=== PATIENT | female | born 2000 | race African-American/Black ===

== ENCOUNTER 2018-04-23 13:53 | Inpatient (IN) | payer OTHER ==
[~2018-04-23] VITALS: Ht 165.1 cm; Wt 81.2 kg
[2018-04-23] MEDS ORDERED: PNV1TABL50 PO (14:09)
[2018-04-23 15:01] LABS: CLARITY URINE CLEAR (CLEAR); COLOR URINE YELLOW (YELLOW); KETONES URINE NEGATIVE (NEGATIVE); LEUKOCYTE ESTERASE URINE TRACE (NEGATIVE); NITRITE URINE NEGATIVE (NEGATIVE); OCCULT BLOOD URINE NEGATIVE (NEGATIVE); PROTEIN URINE TRACE (NEGATIVE); SPECIFIC GRAVITY URINE 1.018 (1.005-1.030)
[2018-04-23 15:16] LABS: *BARBITURATES SCREEN URINE NEGATIVE (NEGATIVE)
[2018-04-23 15:17] LABS: *BENZODIAZEPINES SCREEN URINE NEGATIVE (NEGATIVE); *COCAINE SCREEN URINE NEGATIVE (NEGATIVE); CANNABINOID URINE SCREEN NEGATIVE (NEGATIVE); METHADONE URINE SCREEN NEGATIVE (NEGATIVE); OPIATES URINE SCREEN NEGATIVE (NEGATIVE); PHENCYCLIDINE URINE SCREEN NEGATIVE (NEGATIVE)
[2018-04-23 15:24] LABS: *AMPHETAMINES SCREEN URINE PRESUMTIVE POSITIVE (NEGATIVE)
[2018-04-23] MEDS ORDERED: DEXT 5%/LR + PITOCIN 20UNITS/L 1,000 ML IV SCH (15:54)
[2018-04-23] MEDS ORDERED: LACTATED RINGERS 1,000 ML IV SCH (15:54)
[2018-04-23] MEDS ORDERED: PENICILLIN G POTASSIUM 5 MMU in DEXT 5% WATER 100 ML IV SCH (16:00)
[2018-04-23] MEDS ORDERED: BUTORPHANOL TARTRATE 2 MG/ML VIAL IV PRN (16:00)
[2018-04-23] MEDS ORDERED: MAGNESIUM 20 G PREMIX (L & D) 500 ML IV SCH (16:00)
[2018-04-23] MEDS ORDERED: LIDOCAINE HCL 1% 20ML VIAL (Pyxis) INJ INFIL SCH (16:00)
[2018-04-23 16:50] LABS: BASOPHILS % 0.7 % (0.0-2.0); EOSINOPHILS % 0.2 % (0.0-5.0); HEMOGLOBIN. 11.2 g/dL (12.0-16.0); LYMPHOCYTES % 15.4 % (20.0-50.0); MEAN CORPUSCULAR HEMOGLOBIN 24.7 pg (28.0-32.0); MEAN CORPUSCULAR VOLUME 76.9 fL (81.0-99.0); MEAN PLATELET VOLUME 9.1 fl (7.4-10.4); NEUTROPHILS % 77.7 % (40.0-76.0); PLATELET 232 x1000/uL (130-400); RED BLOOD CELL COUNT 4.55 mill/uL (4.2-5.4); RED CELL DISTRIBUTION WIDTH 14.2 % (11.6-14.6)
[2018-04-23 17:06] LABS: CHLORIDE 107 mEq/L (98-107)
[2018-04-23 17:23] LABS: INR 0.9; PARTIAL THROMBOPLASTIN TIME 27.3 sec (23.4-31.0); PROTHROMBIN TIME 9.1 sec (9.1-11.1)
[2018-04-23 17:36] LABS: HEPATITIS B SURFACE ANTIGEN NEGATIVE
[2018-04-23 17:47] LABS: RUBELLA IGG > 500.0 IU/mL (4.99-10)
[2018-04-23] MEDS ORDERED: BETAMETHASONE ACET/BETAMET 30 MG/5 ML VIAL IM SCH (18:15)
[2018-04-23] MEDS ORDERED: HYDRALAZINE 20MG/ML VIAL IV NR (19:45)
[2018-04-23] MEDS ORDERED: PENICILLIN G POTASSIUM 2.5 MMU in DEXTROSE 5% WATER 50 ML IV SCH (20:30)
[2018-04-23] MEDS ORDERED: BUPIVACAINE HCL/PF 0.25% (2.5MG/ML) 10ML ONE (21:26)
[2018-04-23] MEDS ORDERED: BUPIVACAINE HCL/NS/PF EPIDURAL 100 ML EP ONE (21:26)
[2018-04-23] MEDS ORDERED: FENTANYL CITRATE/PF 50MCG/ML 2ML VIAL ONE (21:26)
[2018-04-23] MEDS ORDERED: BUPIVACAINE HCL/NS/PF EPIDURAL 100 ML EP SCH (22:15)
[2018-04-23] MEDS ORDERED: LIDOCAINE HCL/PF 2% 20MG/ML 5 ML/VIAL ONE ×2 (23:23→23:47)
[2018-04-23] MEDS ORDERED: MIDAZOLAM HCL 2 MG/2 ML VIAL ONE (23:28)
[2018-04-23] MEDS ORDERED: GLYCOPYRROLATE 0.2 MG/ML 2ML VIAL ONE (23:47)
[2018-04-23] MEDS ORDERED: OXYTOCIN 10 UNITS/ML 1ML ONE (23:58)
[2018-04-23] MEDS ORDERED: CEFAZOLIN 2000MG PREMIX 50 ML IV ONE (23:59)
[2018-04-24] VITALS (7 sets, daily range): BP systolic 98–118; BP diastolic 51–81
[2018-04-24] MEDS ORDERED: PENICILLIN G POTASSIUM 2.5 MMU in DEXTROSE 5% WATER 50 ML IV SCH ×2
[2018-04-24] MEDS ORDERED: MORPHINE SULFATE/PF 1MG/ML 10ML AMP ONE (00:10)
[2018-04-24] MEDS ORDERED: SODIUM CHLORIDE 0.9% 10ML VIAL ONE (00:12)
[2018-04-24] MEDS ORDERED: PROPOFOL 200MG/20ML VIAL IV ONE (00:20)
[2018-04-24] MEDS ORDERED: ONDANSETRON HCL 4MG/2ML VIAL IV PRN (00:30)
[2018-04-24] MEDS ORDERED: BISACODYL 10MG SUPP PR PRN (00:30)
[2018-04-24] MEDS ORDERED: BUTORPHANOL TARTRATE 2 MG/ML VIAL IV PRN (00:45)
[2018-04-24] MEDS ORDERED: DIPHENHYDRAMINE 50MG/ML VIAL IV PRN (00:45)
[2018-04-24] MEDS ORDERED: NALOXONE HCL 0.4 MG/ML 1ML VIAL IV PRN (00:45)
[2018-04-24] MEDS ORDERED: KETOROLAC 30MG/ML VIAL IV PRN (00:45)
[2018-04-24] MEDS ORDERED: MAGNESIUM 1 G PREMIX 100 ML IV ONE (01:45)
[2018-04-24] MEDS ORDERED: MAGNESIUM 20 G PREMIX (L & D) 500 ML IV SCH (02:00)
[2018-04-24] MEDS ORDERED: DEXT 5%/LACTATED RINGERS 1,000 ML IV SCH (02:00)
[2018-04-24] MEDS: PRENATAL VIT/FE FUMARATE/FA TABLET PO SCH (15:39)
[2018-04-24] MEDS: SIMETHICONE 80MG TABLET CHEW PO SCH ×2 (15:40→21:33)
[2018-04-24] MEDS: DOCUSATE SODIUM 100MG CAPSULE PO SCH (21:32)
[2018-04-25] VITALS: BP 133/71
[2018-04-25 05:45] VITALS: BP 100/61
[2018-04-25 07:25] LABS: BASOPHILS % 0.2 % (0.0-2.0); EOSINOPHILS % 0.2 % (0.0-5.0); HEMATOCRIT. 24.7 % (36.0-48.0); HEMOGLOBIN. 7.9 g/dL (12.0-16.0); LYMPHOCYTES % 15.6 % (20.0-50.0); MEAN CORPUSCULAR HEMOGLOBIN 24.6 pg (28.0-32.0); MEAN CORPUSCULAR VOLUME 76.5 fL (81.0-99.0); MEAN PLATELET VOLUME 9.6 fl (7.4-10.4); MONOCYTES % 6.7 % (2.0-8.0); NEUTROPHILS % 77.3 % (40.0-76.0); PLATELET 194 x1000/uL (130-400); RED BLOOD CELL COUNT 3.23 mill/uL (4.2-5.4); RED CELL DISTRIBUTION WIDTH 14.2 % (11.6-14.6)
[2018-04-25 08:00] VITALS: BP 113/52
[2018-04-25] MEDS: SIMETHICONE 80MG TABLET CHEW PO SCH ×4 (09:59→20:48)
[2018-04-25] MEDS: PRENATAL VIT/FE FUMARATE/FA TABLET PO SCH (10:00)
[2018-04-25 16:36] VITALS: BP 138/81
[2018-04-25] MEDS: DOCUSATE SODIUM 100MG CAPSULE PO SCH (20:48)
[2018-04-25] MEDS: ACETAMINOPHEN WITH CODEINE 300/30MG TABLET PO PRN (20:59)
[2018-04-25 22:00] VITALS: BP 128/52
[2018-04-26 05:45] VITALS: BP 126/75
[2018-04-26 08:00] VITALS: BP 136/78
[2018-04-26] MEDS: PRENATAL VIT/FE FUMARATE/FA TABLET PO SCH (08:53)
[2018-04-26] MEDS: SIMETHICONE 80MG TABLET CHEW PO SCH ×4 (08:53→21:11)
[2018-04-26] MEDS: ACETAMINOPHEN WITH CODEINE 300/30MG TABLET PO PRN (08:54)
[2018-04-26 16:20] VITALS: BP 145/80
[2018-04-26] MEDS: DOCUSATE SODIUM 100MG CAPSULE PO SCH (21:11)
[2018-04-26 22:00] VITALS: BP 128/72
[2018-04-27 06:00] VITALS: BP 129/70
[2018-04-27 08:00] VITALS: BP 123/75
[2018-04-27] MEDS: SIMETHICONE 80MG TABLET CHEW PO SCH (08:46)
[2018-04-27] MEDS: PRENATAL VIT/FE FUMARATE/FA TABLET PO SCH (08:46)
== END 2018-04-27 11:05 | disposition home or self-care (01) | DRG 540 ==
LOC: L&D 13:53 → OBSVTOIN 13:53 → 7EST PP/OB 04-24 04:30
PROVIDERS: ADMIT Obstetrics & Gynecology; ATTEND Obstetrics & Gynecology
PROC: 10D00Z1 Extraction of Products of Conception, Low, Open Approach (ICD-10-PCS; principal; 2018-04-23 00:15)
DX: O60.03 Preterm labor without delivery, third trimester (principal); O45.93 Premature separation of placenta, unspecified, third trimester; O99.324 Drug use complicating childbirth; O76 Abnormality in fetal heart rate and rhythm complicating labor and delivery; F15.10 Other stimulant abuse, uncomplicated; Z37.0 Single live birth; Z3A.32 32 weeks gestation of pregnancy; Z79.899 Other long term (current) drug therapy
CPT/HCPCS: 36415; 76805; 76818; 80053; 80305; 80307; 81003; 83735; 84550; 85025; 85384; 85610; 85730; 86592; 86703; 86762; 86850; 86900; 87340; 88307; A4216; G0378; J0360; J0595; J0690; J0702; J1885; J2250; J2274; J2540; J2590; J2704; J3010; J3475; J3490; J7060; J7120; J7121; A4315